=== PATIENT | female | born 2000 | race Caucasian/White ===

== ENCOUNTER 2024-03-29 12:25 | Outpatient (RCR) | payer BC, SELFPAY ==
--- NOTE | 2024-03-29 14:55 | HP.OTFCE_ITS ---
Task Lift Floor (Occasional 1-33% of Day): max lift 15# Floor (Frequent 34-66% of Day): 7.5# Floor (Constant 67-100% of Day): 3.15# Floor PDL: Sedentary-Light Knee (Occasional 1-33% of Day): max lift 25# Knee (Frequent 34-66% of Day): 12.5# Knee (Constant 67-100% of Day): 5.2# Knee PDL: Light Waist (Occasional 1-33% of Day): max lift 20# Waist (Frequent 34-66% of Day): 10# Waist (Constant 67-100% of Day): 4.2# Waist PDL: Light Shoulder (Occasional 1-33% of Day): max lift 25# Shoulder (Frequent 34-66% of Day): 12.5# Shoulder (Constant 67-100% of Day): 5.2# Shoulder PDL: Light Overhead (Occasional 1-33% of Day): max lift 15# Overhead (Frequent 34-66% of Day): 7.5# Overhead (Constant 67-100% of Day): 3.15# Overhead PDL: Sedentary-Light Comments: poor body mechanics as patient is placing all weight on L LE when lifting Work Activity/Posture Bending: Frequent Ability (34-66% of day) Squatting: Occasional Ability (1-33% of day) Kneeling: Occasional Ability (1-33% of day) Reaching out: Constant Ability (67-100% of day) Reaching up: Constant Ability (67-100% of day) Sitting: Constant Ability (67-100% of day) Walking: Frequent Ability (34-66% of day) Standing: Frequent Ability (34-66% of day) Reference Reference: Duration Sedentary Sedentary Light Light Light Medium Medium Medium Heavy Very Heavy Heavy Occasional (0-33% of day) Frequent (34-66% of day) Constant (67-100% of day) 10 # Negligible Negligible 15 # 8 # Negligible 20 # 10# Negli. 35 # 18 # 7 # 50 # 25 # 10 # 75 # 100 # >100 # 38 # 50 # >50 # 15 # 20 # >20 # Patient Information Hand Dominance: right handed Medical History Medical History Including Restrictions: Patient initially injured her right leg likely from a fall in Dece2022, at that time she went for an x ray and MRI, both came back unremarkable. At that time, patient took time off work as a voluntary leave of absence (offered from work during winter time). Patient started physical therapy for 4 weeks around November - December 2023. Patient reports she was feeling better with therapy but then one day it started to hurt again. Patient returned to the doctor and had a repeat MRI and x ray which both came back unremarkable. Patient was evaluated on Wednesday03/27/24 by physical therapy who reported possibly her pain might be stemming from her quadraceps involvement. Patient currently wraps it at home with gauze bandage to provide it some light support. Patient has not tried a knee brace. 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 Patient reports her job requires lifting throughout the day as well as standing for long periods of time. Behavioral Behavioral: Patient arrives on time and was cooperative throughout. She communicated verbally and was able to follow therapist-directed prompts. ADLS ADLS: Patient lives with her mom but completes all ADLs independently. Patient has two pets she cares for. 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 Physical Examination Physical Examination: Patient is well appearing and able to participate in OT evaluation without distress. She ambulated back to treatment area with an antalgic and slow gait but did not need a seated rest break or report any increase in pain. She was able to communicate verbally and complete functional transfers without assistance. ROM: upper body range of motion intact, no concerns Strength: R UE: shoulder flexion 22#/extension 24#; elbow flexion 21.5#/extension 21.7#; wrist flexion 11.4#/extension 12.5# L UE: shoulder flexion 17.6#.extension 22.5#; L elbow flexion 24.6#/extension 16.5#; wrist flexion 13#/extension 10# R LUE: hip flexion 21.4#; knee extension 21.5# (increase pain to 3/10/ knee flexion 25.4# L UE: hip flexion: 29.9#; knee extension 30.6#/flexion 26.6# Right Neurology Physician Strength Average: 42.66 Right Neurology Physician Strength Percentile: 3rd Left Neurology Physician Strength Average: 41.66 Left Neurology Physician Strength Percentile: 6th Right Lateral Pinch Average: 9.33 Right Lateral Pinch Percentile: <10th Left Lateral Pinch Average: 10.00 Left Lateral Pinch Percentile: 10th Right Tripod Pinch Average: 6.33 Right Tripod Pinch Percentile: <10th Left Tripod Pinch Average: 6.33 Left Tripod Pinch Percentile: <10th Comments: Patient appeared hypermobile in hand joints with hyperextension noted in finger joints when applying pressure with dynamometer and pinch guage. Patient reports being hypermobile throughout her body. This may increase her risk of injury. Sensation: sensation intact no numbness or tingling Fine Motor: fine motor skills intact, no concerns Balance: Patient self-reports poor balance. Patient reports poor balance before the injury and the right leg has caused it to be a little more of a challenge. Patient was observed to frequently use external upper body support to off-load weight of lower body or stabilize self when standing. She would often have a slight loss of balance with transitional movements but was able to self-correct without fall. She would stabilize on a wall or surface if able. Non Material Handling Activities Bending: patient able to bend to/from the floor functionally with all weight on her left leg 10 reps without increased distress. If patient put equal weight on the right leg, she is only able to complete 3-5 reps before increase in pain Squatting: Patient needing external support on the table for squatting and using arms to offload weight from her legs. Able to complete [address] Kneeling: Patient able to complete 1 rep of kneeling on the right leg with upper body support on external surfance. Patient able to complete 3 reps of kneeling onto the left leg before reporting increased pain in the right quad region. Reaching out/up: Completed 10 reps out and up quickly without distress or concern. Walking: able to walk with antalgic gait, favoring right leg with heavy weight bear on the left leg. Patient slow gait pattern and use of upper body support if available (i.e. leaning on arms of treadmill). Patient able to walk this date for 15 min without rest break. Patient reports she will begin to feel increasingly worse achey-pain after about 30 minutes of walking/standing. Standing: demonstrated ability to stand for 30 minutes at a time without needing a seated rest beak. Patient putting all of her weight on the left leg or using upper body support if it's available. Sitting: Patient is able to sit for a prolonged period of time without distress. Climbing Stairs: Patient able to climb a flight of stairs using a step-to patte rn with use of handrail to offload weight of her legs. Dynamic Occasional Lifting Capacity Floor Lift: max lift 15# with poor form, notably with all weight on her left leg Knee Lift: max lift 25#, all weight on left leg Waist Lift: max lift 20#, all weight on left leg Shoulder Lift: max lift 25#, all weight on left leg Overhead Lift: max lift 25#, all weight on left leg Carrying: max carry 15#, antalgic gait favoring R LE Comments: patient relying heavily on use of left leg and upper body for all lifting tasks. This causes her to be off balance and use poor form which puts her at risk of falling or injuring her non-injured leg.
--- NOTE | 2024-03-29 14:56 | HP.OTFCE.D ---
FCE D/C Summary Discharge text: NAYLA ACOSTA SAMUEL was seen for a one time visit for an FCE on 03/29/24 and is discharged.
== END 2024-03-29 19:00 | disposition home or self-care (01) ==
LOC: OT 12:25
PROVIDERS: PCP Physician Assistant Medical; Referring Provider Internal Medicine; Visit Provider Internal Medicine
DX: M79.661 Pain in right lower leg (principal)
CPT/HCPCS: 97750